=== PATIENT | female | born 1985 | race Caucasian/White ===

== ENCOUNTER 2023-01-26 20:59 | Observation (INO) | payer BC, SELFPAY ==
[2023-01-26] VITALS (15 sets, daily range): BP systolic 104–132; BP diastolic 60–87; PULSE 72–98; RESP 16; TEMP 36.9; O2SAT 95–99; BMI 31.7
--- NOTE | 2023-01-26 21:21 | CT_ITS ---
PROCEDURE INFORMATION: Exam: CT Abdomen And Pelvis With Contrast Exam date and time: 01/26/2023 9:56 PM Age: 38 years old Clinical indication: Abdominal pain; Additional info: Ruq pain, n/v TECHNIQUE: Imaging protocol: Computed tomography of the abdomen and pelvis with contrast. Total images: 334 Radiation optimization: All CT scans at this facility use at least one of these dose optimization techniques: automated exposure control; mA and/or kV adjustment per patient size (includes targeted exams where dose is matched to clinical indication); or iterative reconstruction. Contrast material: ISOVUE; Contrast volume: 75 ml; Contrast route: IV; REPORTING DATA: Count of CT and Cardiac NM exams in prior 12 months: This patient has received 0 known CTs and 0 known cardiac nuclear medicine studies in the 12 months prior to the current study. COMPARISON: No relevant prior studies available. FINDINGS: Lungs: 5 mm right lower lobe nodule, axial image 11 lung bases are otherwise clear. Heart: Normal heart size. Liver: Hepatomegaly at 22 cm. Normal liver contour. No hepatic mass. Hepatic steatosis. Gallbladder and bile ducts: Gallbladder wall thickening and pericholecystic edema. Punctate cholelithiasis versus gallbladder wall calcification. No bile duct dilatation. Pancreas: Normal. No ductal dilation. Spleen: Splenomegaly at 14.5 cm. No splenic mass. Adrenal glands: Normal. No mass. Kidneys and ureters: No hydronephrosis, nephrolithiasis, or renal mass. No perinephric fluid. Stomach and bowel: Mild gastric distention with fluid and recently ingested content. Unremarkable duodenum. No ileus or bowel obstruction. Unremarkable small bowel. Unremarkable terminal ileum. Mild colonic stool burden. No acute colonic inflammatory process. Appendix: Status post appendectomy. Intraperitoneal space: No ascites. No free air. Vasculature: Abdominal aorta is normal in caliber. Major abdominal vessels enhance appropriately. Pelvic phleboliths. Lymph nodes: Mildly prominent bilateral inguinal lymph nodes most likely reactive/postinflammatory. Urinary bladder: Collapsed bladder. Reproductive: Uterus and ovaries are physiologic. Bilateral ovarian dominant follicles. Small degenerated uterine fibroid or myometrial cyst, axial image 112. Trace free pelvic fluid. Bones/joints: Mild degenerative changes thoracolumbar spine. No concerning bone lesions. Soft tissues: Tiny fat containing umbilical hernia. IMPRESSION: 1. Findings concerning for acute cholecystitis. Recommend follow-up gallbladder ultrasound. 2. Hepatosplenomegaly. 3. Hepatic steatosis. 4. 5 mm right lower lobe nodule. For patients at low risk (minimal or absent history of smoking and of other known risk factors), no routine follow-up is indicated. For patients at high risk (history of smoking or of other known risk factors), consider optional CT Chest at 12 months. (Reference: Ce) 5. Additional chronic and incidental findings. REFERENCES: Ce Smith, et al. Guidelines for Management of Incidental Pulmonary Nodules Detected on CT Images: From the Fleischner Society 2017. Radiology. 2017;284(1):228-243.
--- NOTE | 2023-01-26 21:22 | HMH.EDGENADL ---
Discharge Plan Disposition Patient Disposition: Admitted Clinical Impressions Clinical Impression: Acute cholecystitis Discharge ED Provider: Tony Candelaria General Adult HPI General Chief complaint: Abdominal Pain Stated complaint: pain under rt ribs Time Seen by Provider: 01/26/23 21:05 Mode of Arrival: Ambulatory Source of Information: Patient Limitations: No Limitations Description of Symptoms (Recalled from ER Triage Doc. by RN): pt c/o pain under rt breast that started @ 3am this morning that increases after eating. History of Present Illness HPI narrative: 38-year-old female, history of psoriasis on no medications, presents with right upper quadrant pain. She reports pain started less than 24 hours ago, woke her up from sleep, associated vomiting. Pain worse with eating. Patient has had prior appendectomy. Denies any fevers at home. Pain is worsening. Related Data Allergies Allergy/AdvReac Type Severity Reaction Status Date / Time No Known Allergies Allergy Unverified 02/04/17 15:42 [facility] Disclaimer: The information contained in this section may have been updated after the patient was seen, as this information can be updated by other users. Social History Smoking Status: Current every day smoker tobacco type: cigarettes packs per day: 1 alcohol intake: never current occupational status: unemployed Travel in the last 8 weeks: None ROS Obtained: Yes All systems reviewed & no additional complaints except as documented Physical Exam General General appearance: alert Comment: Uncomfortable appearing Head Head exam: atraumatic and normocephalic Eye Eye exam: Present normal appearance, PERRL and EOMI ENT ENT exam: Present normal oropharynx and normal external ear exam Neck Neck exam: Present normal inspection and full ROM Chest Chest inspection: Present normal inspection and symmetric chest wall rise; Absent tenderness Respiratory Respiratory exam: Present normal lung sounds bilaterally; Absent respiratory distress Cardiovascular Cardiovascular exam: Present regular rate and normal rhythm Abdominal Exam Abdominal exam: Present soft and tenderness (Right upper quadrant); Absent distention or guarding Extremities Exam Extremities exam: Present normal inspection; Absent edema or joint swelling Back Exam Back exam: Present normal inspection; Absent tenderness Neurological Exam Neurological exam: Present alert and oriented X3; Absent motor sensory deficit Psychiatric Psychiatric exam: Present normal affect and normal mood Skin Skin exam: Present warm, dry, normal color and other (Scattered psoriatic changes) Lymphatic Lymphatic Findings: no adenopathy Medical Decision Making Medical Records Medical records reviewed: Yes I reviewed the patient's medical records. Lauri Inquiry Pt receiving controlled substance: No Lauri was queried for this patient: No Vital Signs: 01/26/23 21:01 01/26/23 21:10 01/26/23 21:16 Temperature 98.4 F Temperature Source Oral Pulse Rate 97 H 98 H Pulse Rate [Right] 84 Respiratory Rate 16 Blood Pressure 121/83 127/82 Blood Pressure [Right Arm] 132/87 Blood Pressure Mean [Right Arm] 102 02 Sat by Pulse Oximetry 98 95 98 01/26/23 21:35 01/26/23 21:40 01/26/23 21:45 Temperature Temperature Source Pulse Rate 86 92 H 84 Pulse Rate [Right] Respiratory Rate Blood Pressure 111/65 119/72 112/60 Blood Pressure [Right Arm] Blood Pressure Mean [Right Arm] 02 Sat by Pulse Oximetry 96 95 95 01/26/23 21:50 01/26/23 22:10 01/26/23 22:20 Temperature Temperature Source Pulse Rate 83 80 78 Pulse Rate [Right] Respiratory Rate Blood Pressure 104/64 L 114/75 108/70 L Blood Pressure [Right Arm] Blood Pressure Mean [Right Arm] 02 Sat by Pulse Oximetry 97 97 97 01/26/23 22:25 01/26/23 22:30 01/26/23 23:26 Temperature 98.4 F Temperature Source Pulse Rate 76 79 72 Pulse Rate [Right] Res
[2023-01-26 21:38] LABS: Basophils # 0.1 K/mm3 (0-0.2); Basophils % 0.8 % (0.1-2.0); Eosinophils # 0.2 K/mm3 (0.0-0.4); Eosinophils % 1.6 % (0.1-12.0); Hematocrit 38.9 % (37.0-47.0); Hemoglobin 13.3 g/dL (12.2-16.2); Lymphocytes # 3.7 K/mm3 (0.7-4.5); Lymphocytes % 33.5 % (10-50); Mean Corpuscular HGB Conc 34.3 g/dL (31.8-35.4); Mean Corpuscular Hemoglobin 29.6 pg (27.0-31.2); Mean Corpuscular Volume 86.1 fl (81-99); Mean Platelet Volume 7.5 fl (7.4-10.4); Monocytes # 0.4 K/mm3 (0.1-1.0); Neutrophils # 6.7 K/mm3 (1.8-7.8); Neutrophils % 60.1 % (37.0-80.0); Platelet Count 402 K/mm3 (142-424); Red Blood Count 4.51 M/mm3 (4.20-5.40); Red Cell Distribution Width 14.2 % (11.5-17.5); White Blood Count 11.1 K/mm3 (4.8-10.8)
[2023-01-26 21:41] LABS: Chloride 105 mmol/L (98-107)
[2023-01-26 21:42] LABS: Potassium 3.3 mmoL/L (3.5-5.1); Sodium 138 mmol/L (136-145)
[2023-01-26 21:44] LABS: Alanine Aminotransferase 93 U/L (12-78); Alkaline Phosphatase 116 U/L (38-126); Anion Gap 11.3 mEq/L (5-15); Aspartate Amino Transferase 63 U/L (14-36); Bilirubin,Total 0.4 mg/dl (0.2-1.3); Blood Urea Nitrogen 8 mg/dl (7-17); Carbon Dioxide 25 mmol/L (22.0-30.0); Creatinine Clearance Estimated 169 mL/min (50-200); Estimated Glomerular Filt Rate 94 ml/min (>60); GFR (African American) 114 ML/MIN (>60)
[2023-01-26 21:45] LABS: Albumin Level 4.4 g/dl (3.5-5.0); Albumin/Globulin Ratio 1.4 (1.1-1.8); Calcium 9.3 mg/dl (8.4-10.2); Globulin 3.1 g/dL (1.3-3.2); Glucose 133 mg/dl (74-100); Lipase 232 U/L (23-300); Magnesium 2.2 mg/dl (1.6-2.3); Total Protein,Serum 7.5 g/dl (6.3-8.2)
[2023-01-26 21:49] LABS: HCG Qualitative, Serum Negative (Negative)
--- NOTE | 2023-01-26 22:41 | PC.NURSE ---
Paged at this time.
--- NOTE | 2023-01-26 22:52 | PC.NURSE ---
housekeeper supervisor notified of need for room
--- NOTE | 2023-01-26 23:28 | PC.NURSE ---
RECEIVED REPORT FROM Dg CAZARES RN/ED NURSE AT 2330. PATIENT IS A 38 YO FEMALE. DIAGNOSIS CHOLECYSTITIS. MAY COME UP IN W/C.
--- NOTE | 2023-01-26 23:36 | PC.NURSE ---
rounded on patient, ice chips and pillow given, family @ bedside no other needs at this time
[2023-01-27] VITALS (20 sets, daily range): BP systolic 101–144; BP diastolic 59–94; PULSE 63–101; RESP 12–19; TEMP 36.4–37; O2SAT 89–100; BMI 29.9
--- NOTE | 2023-01-27 00:02 | PC.NURSE ---
pt arrived to floor via wheelchair @00:02
--- NOTE | 2023-01-27 00:43 | EXP.HP ---
History of Present Illness *Admission Date: 01/26/23 *Reason for visit:: Abdominal pain *History of present illness: Is a very pleasant 38-year-old female with no significant past medical history who presents emergency department today with complaints of abdominal pain. She reports yesterday morning around 330 she developed sudden onset abdominal pain. She reports feeling somewhat nauseated afterwards the pain eased throughout the day. She reports worsening pain this afternoon into this evening that prompted her emergency department visit. She denies any diarrhea, fever associated with the pain. She reports pain is generalized across her abdomen, intermittent sharp in nature Emergency Department workup significant for acute cholecystitis noted on CT imaging with notable hepatosplenomegaly. Mild transaminitis but bilirubin within normal limits. 3. Dr. Lindsay was consulted with general surgery and recommends Unasyn and hospitalization and will see patient in AM. She is admitted to the hospital service for further evaluation management [facility] Disclaimer: The information contained in this section may have been updated after the patient was seen, as this information can be updated by other users. Surgical History History of appendectomy History of section History of tonsillectomy Family History (Updated 01/27/23 @ 00:28 by Jeannie Hammer RN) Father Family history of myocardial infarction Grandmother Family history of hypertension Mother Family history of diabetes mellitus type I Grandmother Family history of acute congestive heart failure Social History Smoking Status: Current every day smoker tobacco type: cigarettes packs per day: 1 alcohol intake: never current occupational status: unemployed Travel in the last 8 weeks: None Review of Systems Constitutional Constitutional: Reports system reviewed and no additional complaints, except as documented Eyes Eyes: Reports system reviewed and no additional complaints, except as documented ENT Ears, Nose, Mouth, and Throat: Reports system reviewed and no additional complaints, except as documented *Cardiovascular Cardiovascular: Reports system reviewed and no additional complaints, except as documented *Respiratory Respiratory: Reports system reviewed and no additional complaints, except as documented *Gastrointestinal Gastrointestinal: Reports system reviewed and no additional complaints, except as documented *Genitourinary Genitourinary: Reports system reviewed and no additional complaints, except as documented *Musculoskeletal Musculoskeletal: Reports system reviewed and no additional complaints, except as documented *Neurologic Neurologic: Reports system reviewed and no additional complaints, except as documented Meds Home Medications and Allergies Home Medications Medication Instructions Recorded Confirmed Type No Known Home Medications 01/27/23 01/27/23 History New Prescriptions to Start Prescriptions: Allergies Allergy/AdvReac Type Severity Reaction Status Date / Time No Known Allergies Allergy Unverified 02/04/17 15:42 Exam Data for Last 24 hours Vital signs and Labs for Last 24 Hours: Temp Pulse Resp BP Pulse Ox 98.4 F 72 16 116/76 99 01/26/23 23:26 01/26/23 23:26 01/26/23 23:26 01/26/23 23:26 01/26/23 23:05 Laboratory Results - last 24 hr 01/26/23 21:29: WBC 11.1 H, RBC 4.51, Hgb 13.3, Hct 38.9, MCV 86.1, MCH 29.6, MCHC 34.3, RDW 14.2, Plt Count 402, MPV 7.5, Neut % (Auto) 60.1, Lymph % (Auto) 33.5, [place] % (Auto) 4.0, Eos % (Auto) 1.6, Baso % (Auto) 0.8, Neut # (Auto) 6.7, Lymph # (Auto) 3.7, [place] # (Auto) 0.4, Eos # (Auto) 0.2, Baso # (Auto) 0.1, Sodium 138, Potassium 3.3 L, Chloride 105, Carbon Dioxide 25, Anion Gap 11.3, BUN 8, Creatinine 0.70, Estimated Creat Clear 169, Estimated GFR 94, Est GFR (Af
--- NOTE | 2023-01-27 04:45 | PC.NURSE ---
VITAL SIGNS STABLE. AFEBRILE. NO N/V REPORTED. HAS NOT HAD ANY PAIN SINCE ARRIVAL TO MED SURG. REMAINS NPO PENDING SURGICAL CONSULT.
--- NOTE | 2023-01-27 05:50 | EXP.SURG.CON ---
History of Present Illness *Admission Date: 01/26/23 *Reason for visit:: Cholecystitis *History of present illness: Patient is a 38-year-old female from [facility] who presented to the emergency department in the late evening of 01/26/2023 with 24-hour history of right upper quadrant abdominal pain. She states that this began in the afternoon around 3:30 AM. It awoke her from sleep. She felt somewhat nauseated. Evaluation in the emergency department revealed mild leukocytosis and mild transaminitis. Normal bilirubin. She had imaging performed as a bedside ultrasound by the ER physician which revealed gallbladder wall thickening and pericholecystic fluid with no evidence of any ductal dilatation or calcified gallstone. White blood cell count is 11,000. AST 63, ALT 93. Alkaline phosphatase bilirubin and pancreatic enzymes normal. CT scan revealed findings of concern for acute cholecystitis, hepatosplenomegaly, hepatic steatosis and 5 mm right lower lobe lung nodule. Patient admitted for inpatient management of presumed cholecystitis. Patient feels somewhat better this morning. She denies any prior gallbladder history. Denies any history of liver disease. Denies risk factors. [facility] Disclaimer: The information contained in this section may have been updated after the patient was seen, as this information can be updated by other users. Surgical History History of appendectomy History of section History of tonsillectomy Family History (Updated 01/27/23 @ 00:28 by Jeannie Hammer RN) Family history of acute congestive heart failure Grandmother Family history of hypertension Grandmother Family history of diabetes mellitus type I Mother Family history of myocardial infarction Father Social History Smoking Status: Current every day smoker tobacco type: cigarettes packs per day: 1 alcohol intake: never current occupational status: unemployed Travel in the last 8 weeks: None Review of Systems *Neurologic Neurologic: Reports system reviewed and no additional complaints, except as documented Meds Home Medications and Allergies Home Medications Medication Instructions Recorded Confirmed Type No Known Home Medications 01/27/23 01/27/23 History New Prescriptions to Start Prescriptions: Allergies Allergy/AdvReac Type Severity Reaction Status Date / Time No Known Allergies Allergy Verified 01/27/23 04:12 Exam (Inpt) Vital signs and Labs for Last 24 Hours: Temp Pulse Resp BP Pulse Ox O2 Del Method 97.9 F 63 16 101/59 L 93 L Room Air 01/27/23 04:00 01/27/23 04:00 01/27/23 04:00 01/27/23 04:00 01/27/23 04:00 01/27/23 05:00 Laboratory Results - last 24 hr 01/26/23 21:29: WBC 11.1 H, RBC 4.51, Hgb 13.3, Hct 38.9, MCV 86.1, MCH 29.6, MCHC 34.3, RDW 14.2, Plt Count 402, MPV 7.5, Neut % (Auto) 60.1, Lymph % (Auto) 33.5, [place] % (Auto) 4.0, Eos % (Auto) 1.6, Baso % (Auto) 0.8, Neut # (Auto) 6.7, Lymph # (Auto) 3.7, [place] # (Auto) 0.4, Eos # (Auto) 0.2, Baso # (Auto) 0.1, Sodium 138, Potassium 3.3 L, Chloride 105, Carbon Dioxide 25, Anion Gap 11.3, BUN 8, Creatinine 0.70, Estimated Creat Clear 169, Estimated GFR 94, Est GFR ( Amer) 114, Glucose 133 H, Calcium 9.3, Magnesium 2.2, Total Bilirubin 0.4, AST 63 H, ALT 93 H, Alkaline Phosphatase 116, Total Protein 7.5, Albumin 4.4, Globulin 3.1, Albumin/Globulin Ratio 1.4, Lipase 232, Serum HCG, Qual Negative I & O for Labs for Last 24 Hours: Intake & Output 01/24/23 01/25/23 01/26/23 01/27/23 11:59 11:59 11:59 11:59 Intake Total 308 / 308 Balance 308 / 308 Weight 202 lb 3.187 oz Constitutional: no acute distress Head: Present normocephalic Neck: Present normal inspection Respiratory: Present CTA bilaterally Cardiac: Present Reg Rate and Rhythm GI: Present soft; Absent tenderness Comments:: Ab
[2023-01-27 05:59] LABS: Basophils # 0.1 K/mm3 (0-0.2); Basophils % 0.5 % (0.1-2.0); Eosinophils # 0.1 K/mm3 (0.0-0.4); Eosinophils % 1.3 % (0.1-12.0); Hematocrit 37.5 % (37.0-47.0); Hemoglobin 12.6 g/dL (12.2-16.2); Lymphocytes # 3.3 K/mm3 (0.7-4.5); Lymphocytes % 33.8 % (10-50); Mean Corpuscular HGB Conc 33.5 g/dL (31.8-35.4); Mean Corpuscular Hemoglobin 29.4 pg (27.0-31.2); Mean Corpuscular Volume 87.8 fl (81-99); Mean Platelet Volume 7.8 fl (7.4-10.4); Monocytes # 0.4 K/mm3 (0.1-1.0); Monocytes % 3.9 % (1.7-9.3); Neutrophils # 5.9 K/mm3 (1.8-7.8); Neutrophils % 60.5 % (37.0-80.0); Platelet Count 363 K/mm3 (142-424); Red Blood Count 4.27 M/mm3 (4.20-5.40); Red Cell Distribution Width 14.4 % (11.5-17.5); White Blood Count 9.8 K/mm3 (4.8-10.8)
[2023-01-27 06:18] LABS: Chloride 108 mmol/L (98-107); Sodium 137 mmol/L (136-145)
[2023-01-27 06:19] LABS: Potassium 3.9 mmoL/L (3.5-5.1)
[2023-01-27 06:21] LABS: Blood Urea Nitrogen 7 mg/dl (7-17); Creatinine Clearance Estimated 159 mL/min (50-200); Estimated Glomerular Filt Rate 94 ml/min (>60); GFR (African American) 114 ML/MIN (>60)
[2023-01-27 06:22] LABS: Anion Gap 8.9 mEq/L (5-15); Calcium 8.3 mg/dl (8.4-10.2); Carbon Dioxide 24 mmol/L (22.0-30.0); Glucose 101 mg/dl (74-100)
--- NOTE | 2023-01-27 08:00 | US_ITS ---
FINAL REPORT CLINICAL HISTORY: acute cholecystitis COMPARISON: CT abdomen and pelvis 01/26/2023 FINDINGS: Sonographic images of the right upper quadrant were obtained. The pancreas is partially obscured. The liver is fatty infiltrated. There is significant gallbladder wall thickening up to 4 mm with pericholecystic fluid. There is a small amount of sludge. There is no evidence of biliary ductal dilatation. The common duct measures 3 mm, which is normal in size. Limited images of the right kidney are unremarkable. IMPRESSION: Significant gallbladder wall thickening with pericholecystic fluid and small amount of sludge. Can not exclude cholecystitis in the appropriate clinical setting. Fatty liver. Reviewed, Interpreted and Dictated by Naeem Del Toro MD Transcribed by Jacki Potts Authenticated and [facility]
[2023-01-27 09:27] LABS: Alanine Aminotransferase 88 U/L (12-78); Albumin Level 3.8 g/dl (3.5-5.0); Alkaline Phosphatase 111 U/L (38-126); Aspartate Amino Transferase 79 U/L (14-36); Bilirubin,Direct 0.3 mg/dl (0.0-0.4); Bilirubin,Indirect 0.1 mg/dL (0.0-0.9); Bilirubin,Total 0.4 mg/dl (0.2-1.3); Bilirubin,Unconjugated 0.2 mg/dL (0.0-1.1); Total Protein,Serum 6.6 g/dl (6.3-8.2)
[2023-01-27 12:49] LABS: Amphetamine/Metha Screen,Urine Negative ng/ml (<1000); Benzodiazepines Screen,Urine Negative ng/ml (<200)
[2023-01-27 12:50] LABS: Barbiturates Screen,Urine Negative ng/ml (<200)
[2023-01-27 12:51] LABS: Cannabinoid Screen,Urine Negative ng/ml (<50); Cocaine Screen,Urine Negative ng/ml (<300)
[2023-01-27 12:52] LABS: Methadone Screen,Urine Negative ng/ml (<300)
[2023-01-27 12:53] LABS: Opiate Screen,Urine Positive ng/ml (<300); Phencyclidine Screen,Urine Negative ng/ml (<25)
--- NOTE | 2023-01-27 15:16 | EXP.ANES.CKL ---
[facility] Disclaimer: The information contained in this section may have been updated after the patient was seen, as this information can be updated by other users. Surgical History History of appendectomy History of section History of tonsillectomy Family History (Updated 01/27/23 @ 00:28 by Jeannie Hammer RN) Father Family history of myocardial infarction Grandmother Family history of hypertension Mother Family history of diabetes mellitus type I Grandmother Family history of acute congestive heart failure Social History Smoking Status: Current every day smoker tobacco type: cigarettes packs per day: 1 alcohol intake: never substance use type: denies use current occupational status: unemployed Travel in the last 8 weeks: None [facility] Anesthesia Checklist Patient Identification Patient Identification: Verbal (Name & ) Structural Data Admitted From: Inpatient Planned Operative Procedure/s: lap winnie Consent for Planned Operative Procedure(s) Verified: Yes NPO Status Verified Time NPO: 00:00 Airway Assessment Mallampati Score:: Class II C-Spine Mobility Assessed: Yes TMJ Mobility Assessed: Yes Dentition: Poor Dentition Neurological Assessment Level of Consciousness: Awake, Alert and Appropriate Anesthesia Plan Anesthesia Risk discussed: Yes Anesthesia Plan: Verified ASA Class: II Anesthesia Type: General
--- NOTE | 2023-01-27 16:03 | EXP.OP.NOTE ---
Date of procedure: 01/27/23 Pre-op Diagnosis:: Acute cholecystitis Post-op Diagnosis:: Same Procedure performed:: Laparoscopic cholecystectomy Surgeon:: Nelson Lindsay MD LITHOGRAPH PRESS OPERATOR:: Jared Marsh Anesthesia: GETA Estimated blood loss (mL): 20 Clinical Note:: Patient is a 38-year-old female from [facility] who presented to the emergency department in the late evening of 01/26/2023 with 24-hour history of right upper quadrant abdominal pain. She states that this began in the morning of 01/26/2023 around 3:30 AM. It awoke her from sleep. She felt somewhat nauseated. Evaluation in the emergency department revealed mild leukocytosis and mild transaminitis. Normal bilirubin. She had imaging performed as a bedside ultrasound by the ER physician which revealed gallbladder wall thickening and pericholecystic fluid with no evidence of any ductal dilatation or calcified gallstone. White blood cell count is 11,000. AST 63, ALT 93. Alkaline phosphatase bilirubin and pancreatic enzymes normal. CT scan revealed findings of concern for acute cholecystitis, hepatosplenomegaly, hepatic steatosis and 5 mm right lower lobe lung nodule. Patient admitted for inpatient management of presumed cholecystitis. She denies any prior gallbladder history. Denies any history of liver disease. Denies risk factors. Patient was treated presumptively for acute cholecystitis with intravenous antibiotics. She had undergone gallbladder ultrasound. Finally, in the late afternoon, gallbladder ultrasound report revealed significant gallbladder wall thickening and pericholecystic fluid with small amount of sludge. Cannot exclude cholecystitis in the appropriate clinical setting. Fatty liver. He had a normal common bile duct. Clinically the patient had acute biliary colic with possible cholecystitis. Plan was made to proceed with cholecystectomy. Operative findings:: She had profound fatty liver (hepatic steatosis). She had a rather thickened gallbladder with pericholecystic edema. There was moderate stone impacted in the neck of the gallbladder. Operative note:: Consent was obtained and patient was taken to the operating room. She was given preoperative intravenous antibiotics. In the operating room she was placed in a supine position. General anesthesia was induced via endotracheal tube. Abdomen was prepped and draped in the standard surgical fashion. Subumbilical skin incision was made. While performing abdominal wall lift Veress needle was inserted. CO2 pneumoperitoneum was achieved to 15 mmHg. 11 mm optical trocar was inserted at the umbilicus. Intraperitoneal contents were visualized. She was immediately noted to have enlarged fatty liver. She was positioned in reverse Trendelenburg and left side down. A couple 5 mm trocars were inserted in the right upper abdomen. 10 mm trocar was inserted in the epigastrium. Liver was elevated. Gallbladder was identified and grasped retracted anteriorly over the dome of the liver. Gallbladder was rather thickened. It was edematous. Infundibulum of the gallbladder was retracted anterior laterally. Blunt dissection was carried out at the neck of the gallbladder bluntly incising the visceral peritoneum. Careful dissection was carried out ultimately identifying the cystic duct and cystic artery in the critical view of safety. There was some significant inflammation of the cystic duct it was noted that there was a firm small to moderate stone impacted in the neck of the gallbladder. Once structures were clearly identified in the critical view of safety the cystic duct was isolated, multiply clipped, and sharply divided. Cystic artery was carefully coagulated with SUMAN ultrasonic harmonic guzman and divided. Gallbladder was dissected free from the liver in a retrograde fashion using SUMAN ultrasonic harmonic guzman. Gallbladder was placed in an Endo Catch retrieval device and removed from the peritoneal cavity via the umbilical tro
--- NOTE | 2023-01-27 16:10 | P.PNANES_ITS ---
[facility] Anesthesia Record Part I Anesthesia Record I Intake, IV Amount: 1,200 Hydration: Adequate Estimated blood loss (mL): 0 Urine output (mL): 0 Blood Pressure: 141/94 SaO2: 94 Pulse Rate: 98 Airway Patency: Patent Respiratory Rate: 12 Temperature: 98 F Patient is:: Awake and Stable Stable to PACU at:: 16:08
--- NOTE | 2023-01-27 18:43 | PC.NURSE ---
AOX4, NOT REQUIRING O2 SINCE ARRIVAL TO THE FLOOR FROM PACU. TOLERATED DINNER WELL. DENIES N/V. MEDICATED FOR PAIN X1 PER MAR WITH GOOD EFFECTIVENESS NOTED. AMBULATED WITH STANDBY ASSIST TO THE RESTROOM AND TOLERATED WELL.
[2023-01-28 04:00] VITALS: BP 115/65; PULSE 72; RESP 16; TEMP 36.8; O2SAT 95; BMI 33.1
[2023-01-28 06:12] LABS: HBsAg Screen Negative (Negative); HCV Ab Non Reactive (Non Reactive); Hep A Ab, IGM Negative (Negative); Hep B Core Ab, IgM Negative (Negative)
[2023-01-28 06:20] LABS: Basophils % 0.2 % (0.1-2.0); Eosinophils % 0.1 % (0.1-12.0); Hematocrit 35.7 % (37.0-47.0); Hemoglobin 12.4 g/dL (12.2-16.2); Lymphocytes # 1.6 K/mm3 (0.7-4.5); Mean Corpuscular HGB Conc 34.7 g/dL (31.8-35.4); Mean Corpuscular Hemoglobin 29.4 pg (27.0-31.2); Mean Corpuscular Volume 84.9 fl (81-99); Mean Platelet Volume 7.4 fl (7.4-10.4); Monocytes # 0.4 K/mm3 (0.1-1.0); Monocytes % 2.9 % (1.7-9.3); Neutrophils # 10.5 K/mm3 (1.8-7.8); Neutrophils % 83.9 % (37.0-80.0); Platelet Count 384 K/mm3 (142-424); Red Blood Count 4.21 M/mm3 (4.20-5.40); White Blood Count 12.5 K/mm3 (4.8-10.8)
[2023-01-28 06:27] LABS: Chloride 108 mmol/L (98-107); Sodium 136 mmol/L (136-145)
[2023-01-28 06:30] LABS: Alanine Aminotransferase 110 U/L (12-78); Albumin Level 3.7 g/dl (3.5-5.0); Albumin/Globulin Ratio 1.3 (1.1-1.8); Alkaline Phosphatase 113 U/L (38-126); Aspartate Amino Transferase 90 U/L (14-36); Bilirubin,Total 0.7 mg/dl (0.2-1.3); Blood Urea Nitrogen 6 mg/dl (7-17); Calcium 8.3 mg/dl (8.4-10.2); Carbon Dioxide 25 mmol/L (22.0-30.0); Creatinine Clearance Estimated 206 mL/min (50-200); Estimated Glomerular Filt Rate 112 ml/min (>60); GFR (African American) 136 ML/MIN (>60); Globulin 2.8 g/dL (1.3-3.2); Glucose 119 mg/dl (74-100); Total Protein,Serum 6.5 g/dl (6.3-8.2)
--- NOTE | 2023-01-28 07:51 | EXP.DC.SUM ---
General Admission date:: 01/26/23 Discharge date: 01/28/23 HPI HPI HPI: Patient is a 38-year-old female from [facility] who presented to the emergency department in the late evening of 01/26/2023 with 24-hour history of right upper quadrant abdominal pain. She states that this began around 3:30 AM. It awoke her from sleep. She felt somewhat nauseated. Evaluation in the emergency department revealed mild leukocytosis and mild transaminitis. Normal bilirubin. She had imaging performed as a bedside ultrasound by the ER physician which revealed gallbladder wall thickening and pericholecystic fluid with no evidence of any ductal dilatation or calcified gallstone. White blood cell count is 11,000. AST 63, ALT 93. Alkaline phosphatase bilirubin and pancreatic enzymes normal. CT scan revealed findings of concern for acute cholecystitis, hepatosplenomegaly, hepatic steatosis and 5 mm right lower lobe lung nodule. Patient admitted for inpatient management of presumed cholecystitis. Hospital Course Hospital Course Hospital Course: Patient was admitted for inpatient management of acute cholecystitis. She was started on Unasyn for antibiotic coverage. She had normalization of her white blood cell count. Her symptoms somewhat improved. She had dedicated gallbladder ultrasound ordered on 01/27/2023. Ultimately, finally, in the afternoon report returned which revealed significant gallbladder wall thickening and pericholecystic fluid with small amount of sludge. Cannot exclude cholecystitis in the appropriate clinical setting. Fatty liver. It was noted that she had a normal common bile duct. Clinically was felt that the patient had acute biliary colic with probable acute cholecystitis, likely not infected. Options were discussed and she was taken to the operating room in the afternoon of 01/27/2023. She underwent laparoscopic cholecystectomy. She was found to have a profound fatty liver consistent with hepatic steatosis. She had a rather thickened gallbladder with some pericholecystic edema and fluid with a small to moderate stone impacted in the neck of the gallbladder. Please see operative dictation for complete details. Postoperatively she was admitted for continued inpatient convalescence. She did well. She tolerated a full liquid diet without any difficulty whatsoever. The following morning she was doing well. She had stable slight elevation of transaminases likely secondary to significant fatty liver. Bilirubin is normal. White blood cell count within expected reactive range. Her abdomen was soft and dressings were clean and intact. Arrangements were made for discharge home on postoperative day #1. There is no need for antibiotics given the lack of infectious cholecystitis found intraoperatively but merely acute inflammatory cholecystitis. Exam Data for Last 24 hours Vital signs and Labs for Last 24 Hours: Temp Pulse Resp BP Pulse Ox O2 Del Method O2 Flow Rate 98.2 F 72 16 115/65 95 Room Air 2 01/28/23 04:00 01/28/23 04:00 01/28/23 04:00 01/28/23 04:00 01/28/23 04:00 01/28/23 07:00 01/27/23 16:18 Laboratory Results - last 24 hr 01/27/23 09:02: Total Bilirubin 0.4, Direct Bilirubin 0.3, Conjugated Bilirubin 0.0, Indirect Bilirubin 0.1, Unconjugated Bilirubin 0.2, AST 79 H D, ALT 88 H, Alkaline Phosphatase 111, Total Protein 6.6, Albumin 3.8 D, Hepatitis A IgM Ab Negative, Hep Bs Antigen Negative, Hep B Core IgM Ab Negative, Hepatitis C Antibody Non reactive 01/27/23 12:20: Urine Opiates Screen Positive H, Urine Methadone Screen Negative, Ur Barbituates Screen Negative, Ur Phencyclidine Scrn Negative, Ur Amphetamines Screen Negative, U Benzodiazepines Scrn Negative, Urine Cocaine Screen Negative, U Marijuana (THC) Screen Negative 01/28/23 06:00: WBC 12.5 H D, RBC 4.21, Hgb 12.4, Hct 35.7 L, MCV 84.9, MCH 29.4, MCHC 34.7, RDW 14.0, Plt Count 384, MPV 7.4, Neut % (Auto) 83.9 H, Lymph % (Auto) 13.0, [place] % (Auto
--- NOTE | 2023-01-28 07:55 | EXP.DC.SUM ---
General Admission date:: 01/26/23 Discharge date: 01/28/23 HPI HPI HPI: Patient is a 38-year-old female from [facility] who presented to the emergency department in the late evening of 01/26/2023 with 24-hour history of right upper quadrant abdominal pain. She states that this began in the afternoon around 3:30 AM. It awoke her from sleep. She felt somewhat nauseated. Evaluation in the emergency department revealed mild leukocytosis and mild transaminitis. Normal bilirubin. She had imaging performed as a bedside ultrasound by the ER physician which revealed gallbladder wall thickening and pericholecystic fluid with no evidence of any ductal dilatation or calcified gallstone. White blood cell count is 11,000. AST 63, ALT 93. Alkaline phosphatase bilirubin and pancreatic enzymes normal. CT scan revealed findings of concern for acute cholecystitis, hepatosplenomegaly, hepatic steatosis and 5 mm right lower lobe lung nodule. Patient admitted for inpatient management of presumed cholecystitis. Patient feels somewhat better this morning. She denies any prior gallbladder history. Denies any history of liver disease. Denies risk factors. Exam Data for Last 24 hours Vital signs and Labs for Last 24 Hours: Temp Pulse Resp BP Pulse Ox O2 Del Method O2 Flow Rate 98.2 F 72 16 115/65 95 Room Air 2 01/28/23 04:00 01/28/23 04:00 01/28/23 04:00 01/28/23 04:00 01/28/23 04:00 01/28/23 07:00 01/27/23 16:18 Laboratory Results - last 24 hr 01/27/23 09:02: Total Bilirubin 0.4, Direct Bilirubin 0.3, Conjugated Bilirubin 0.0, Indirect Bilirubin 0.1, Unconjugated Bilirubin 0.2, AST 79 H D, ALT 88 H, Alkaline Phosphatase 111, Total Protein 6.6, Albumin 3.8 D, Hepatitis A IgM Ab Negative, Hep Bs Antigen Negative, Hep B Core IgM Ab Negative, Hepatitis C Antibody Non reactive 01/27/23 12:20: Urine Opiates Screen Positive H, Urine Methadone Screen Negative, Ur Barbituates Screen Negative, Ur Phencyclidine Scrn Negative, Ur Amphetamines Screen Negative, U Benzodiazepines Scrn Negative, Urine Cocaine Screen Negative, U Marijuana (THC) Screen Negative 01/28/23 06:00: WBC 12.5 H D, RBC 4.21, Hgb 12.4, Hct 35.7 L, MCV 84.9, MCH 29.4, MCHC 34.7, RDW 14.0, Plt Count 384, MPV 7.4, Neut % (Auto) 83.9 H, Lymph % (Auto) 13.0, [place] % (Auto) 2.9, Eos % (Auto) 0.1, Baso % (Auto) 0.2, Neut # (Auto) 10.5 H, Lymph # (Auto) 1.6, [place] # (Auto) 0.4, Eos # (Auto) 0.0, Baso # (Auto) 0.0, Sodium 136, Potassium 4.0, Chloride 108 H, Carbon Dioxide 25, Anion Gap 7.0, BUN 6 L, Creatinine 0.60, Estimated Creat Clear 206, Estimated GFR 112, Est GFR ( Amer) 136, Glucose 119 H, Calcium 8.3 L, Total Bilirubin 0.7, AST 90 H, ALT 110 H, Alkaline Phosphatase 113, Total Protein 6.5, Albumin 3.7, Globulin 2.8, Albumin/Globulin Ratio 1.3 I & O for Last 24 hours: Intake & Output 01/25/23 01/26/23 01/27/23 01/28/23 23:59 23:59 23:59 23:59 Intake Total 2071 Output Total 0 / 0 0 / 0 Balance 2071 0 / 0 Weight 97.522 kg 91.716 kg 101.633 kg Results Data Completed and Pending Labs on day of discharge: Labs from last 24 hours 01/28/23 01/27/23 01/27/23 06:00 12:20 09:02 WBC 12.5 H D RBC 4.21 Hgb 12.4 Hct 35.7 L MCV 84.9 MCH 29.4 MCHC 34.7 RDW 14.0 Plt Count 384 MPV 7.4 Neut % (Auto) 83.9 H Lymph % (Auto) 13.0 [place] % (Auto) 2.9 Eos % (Auto) 0.1 Baso % (Auto) 0.2 Neut # (Auto) 10.5 H Lymph # (Auto) 1.6 [place] # (Auto) 0.4 Eos # (Auto) 0.0 Baso # (Auto) 0.0 Sodium 136 Potassium 4.0 Chloride 108 H Carbon Dioxide 25 Anion Gap 7.0 BUN 6 L Creatinine 0.60 Estimated Creat Clear 206 Estimated GFR 112 Est GFR ( Amer) 136 Glucose 119 H Calcium 8.3 L Total Bilirubin 0.7 0.4 Direct Bilirubin 0.3 Conjugated Bilirubin 0.0 Indirect Bilirubin 0.1 Unconjugated Bilirubin 0.2 AST 90 H 79 H D ALT 110 H 88 H
--- NOTE | 2023-01-28 07:56 | EXP.SURG.PN ---
Subjective Narrative: Patient states that she is doing okay . Having some incisional postoperative soreness. Tolerating full liquid diet without issue. Exam Data for Last 24 hours Vital signs and Labs for Last 24 Hours: Temp Pulse Resp BP Pulse Ox O2 Del Method O2 Flow Rate 98.2 F 72 16 115/65 95 Room Air 2 01/28/23 04:00 01/28/23 04:00 01/28/23 04:00 01/28/23 04:00 01/28/23 04:00 01/28/23 07:00 01/27/23 16:18 Laboratory Results - last 24 hr 01/27/23 09:02: Total Bilirubin 0.4, Direct Bilirubin 0.3, Conjugated Bilirubin 0.0, Indirect Bilirubin 0.1, Unconjugated Bilirubin 0.2, AST 79 H D, ALT 88 H, Alkaline Phosphatase 111, Total Protein 6.6, Albumin 3.8 D, Hepatitis A IgM Ab Negative, Hep Bs Antigen Negative, Hep B Core IgM Ab Negative, Hepatitis C Antibody Non reactive 01/27/23 12:20: Urine Opiates Screen Positive H, Urine Methadone Screen Negative, Ur Barbituates Screen Negative, Ur Phencyclidine Scrn Negative, Ur Amphetamines Screen Negative, U Benzodiazepines Scrn Negative, Urine Cocaine Screen Negative, U Marijuana (THC) Screen Negative 01/28/23 06:00: WBC 12.5 H D, RBC 4.21, Hgb 12.4, Hct 35.7 L, MCV 84.9, MCH 29.4, MCHC 34.7, RDW 14.0, Plt Count 384, MPV 7.4, Neut % (Auto) 83.9 H, Lymph % (Auto) 13.0, [place] % (Auto) 2.9, Eos % (Auto) 0.1, Baso % (Auto) 0.2, Neut # (Auto) 10.5 H, Lymph # (Auto) 1.6, [place] # (Auto) 0.4, Eos # (Auto) 0.0, Baso # (Auto) 0.0, Sodium 136, Potassium 4.0, Chloride 108 H, Carbon Dioxide 25, Anion Gap 7.0, BUN 6 L, Creatinine 0.60, Estimated Creat Clear 206, Estimated GFR 112, Est GFR ( Amer) 136, Glucose 119 H, Calcium 8.3 L, Total Bilirubin 0.7, AST 90 H, ALT 110 H, Alkaline Phosphatase 113, Total Protein 6.5, Albumin 3.7, Globulin 2.8, Albumin/Globulin Ratio 1.3 I & O for Last 24 hours: Intake & Output 01/25/23 01/26/23 01/27/23 01/28/23 11:59 11:59 11:59 11:59 Intake Total 308 / 308 1764 / 1764 Output Total 0 / 0 0 / 0 Balance 308 / 308 1764 / 1764 Weight 202 lb 3.187 oz 224 lb 1 oz *Routine Abdominal Exam Abdominal: Present soft Comments: Dressings dry and intact Progress Note: A&P Assessment and plan (1) Acute cholecystitis: Status: Acute Assessment and plan: Plan for discharge
[2023-01-28 08:00] VITALS: BP 128/82; PULSE 78; RESP 18; TEMP 36.3; O2SAT 98
--- NOTE | 2023-01-28 08:10 | P.PNANES_ITS ---
[facility] Anesthesia Record Part II Anesthesia Record Part II Discharge Time: 16:38 Destination: Second Floor PACU nurse assessment reviewed?: Yes Patient Condition:: Good Anesthesia Complications:: None Swallowing reflex intact?: Yes Airway Patency: Patent Cyanosis?: No Blood Pressure: 139/83 SaO2: 98 Respiratory Rate: 17 Pulse Rate: 84 Temperature: 98 F Mental Status: Alert & Oriented Pain level:: 0 Nausea and/or vomitting:: None Intake, IV Amount: 0 Hydration: Adequate
[2023-01-28 08:11] VITALS: BP 139/83; PULSE 84; RESP 17; TEMP 36.6; O2SAT 98
--- NOTE | 2023-01-28 08:19 | PC.NURSE ---
COURTESY NOTE: morning round completed on pt. pt denies needing assistance at this time. call akin within reach. Jewel SRNA
--- NOTE | 2023-01-30 12:54 | CARE MANAGER ---
Contacted patient related to hospital discharge. She states she has some soreness. She does have her pain medication and is aware of her follow up appointment. She does endorse some pain that feels like someone is squeezing my insides , but not around her incision sites. Transferred her to Dr. Lindsay's office. MARS Bryson
== END 2023-01-28 09:56 | disposition home or self-care (01) ==
LOC: ER 21:48 → 2ND 23:27
PROVIDERS: Internal Medicine Adolescent Medicine; Nurse Practitioner Acute Care; Surgery; Admitting Provider Internal Medicine; Emergency Provider Emergency Medicine; PCP Family Medicine; Visit Provider Internal Medicine
PROC: 0FT44ZZ Resection of Gallbladder, Percutaneous Endoscopic Approach (ICD-10-PCS; CPT 47562; principal; 2023-01-27 15:15)
DX: K80.00 Calculus of gallbladder with acute cholecystitis without obstruction (principal); E87.6 Hypokalemia; F17.210 Nicotine dependence, cigarettes, uncomplicated
CPT/HCPCS: 47562; 36415; 74177; 76705; 80048; 80053; 80074; 80076; 80305; 83690; 83735; 84703; 85025; 99285; G0378; J2405; Q9967